=== PATIENT | female | born 1995 | race African-American/Black ===

== ENCOUNTER 2017-08-11 11:21 | Emergency (ER) | payer OTHER, MEDICAID ==
[~2017-08-11] VITALS: Ht 167.6 cm; Wt 57.0 kg
[2017-08-11 12:24] LABS: BASOPHILS % 0.8 % (0.0-2.0); EOSINOPHILS % 0.4 % (0.0-5.0); HEMATOCRIT. 34.8 % (36.0-48.0); HEMOGLOBIN. 11.4 g/dL (12.0-16.0); LYMPHOCYTES % 14.6 % (20.0-50.0); MEAN CORPUSCULAR HEMOGLOBIN 27.4 pg (28.0-32.0); MEAN CORPUSCULAR VOLUME 83.3 fL (81.0-99.0); MEAN PLATELET VOLUME 7.9 fl (7.4-10.4); MONOCYTES % 10.4 % (2.0-8.0); NEUTROPHILS % 73.8 % (40.0-76.0); PLATELET 240 x1000/uL (130-400); RED BLOOD CELL COUNT 4.17 mill/uL (4.2-5.4); RED CELL DISTRIBUTION WIDTH 14.5 % (11.6-14.6)
[2017-08-11 12:25] LABS: INR 1.2; PROTHROMBIN TIME 12.2 sec (9.4-11.6)
[2017-08-11 12:42] LABS: CARBON DIOXIDE 25 mEq/L (21-32); CHLORIDE 107 mEq/L (98-107)
[2017-08-11] MEDS ORDERED: KETOROLAC 30MG/ML VIAL IV ONE (13:30)
[2017-08-11 14:17] LABS: CLARITY URINE CLOUDY (CLEAR); COLOR URINE DARK YELLOW (YELLOW); GLUCOSE URINE NEGATIVE (NEGATIVE); KETONES URINE 2+ (NEGATIVE); LEUKOCYTE ESTERASE URINE 2+ (NEGATIVE); NITRITE URINE NEGATIVE (NEGATIVE); OCCULT BLOOD URINE 3+ (NEGATIVE); PH URINE 5.5 (4.5-8.0); PROTEIN URINE 1+ (NEGATIVE); SPECIFIC GRAVITY URINE 1.027 (1.005-1.030)
[2017-08-11] MEDS ORDERED: DIPHENHYDRAMINE 50MG/ML VIAL IV ONE (15:45)
[2017-08-11] MEDS ORDERED: PROCHLORPERAZINE 10MG/2ML VIAL IV ONE (15:45)
[2017-08-11] MEDS ORDERED: PROCHLORPERAZINE 10MG/2ML VIAL IV NR (16:02)
[2017-08-11 16:34] VITALS: BP 118/70
== END 2017-08-11 16:46 | disposition home or self-care (01) ==
LOC: ER 12:32
DX: N93.9 Abnormal uterine and vaginal bleeding, unspecified (principal); R51 Headache; J45.909 Unspecified asthma, uncomplicated; D72.819 Decreased white blood cell count, unspecified; D64.9 Anemia, unspecified; Z97.5 Presence of (intrauterine) contraceptive device; Z98.890 Other specified postprocedural states
CPT/HCPCS: 36415; 70450; 76830; 76856; 80053; 81001; 81025; 83690; 85025; 85610; 96374; 96375; 99285; J0780; J1200; J1885; Z7610